=== PATIENT | male | born 1995 | race Caucasian/White ===

== ENCOUNTER 2023-10-15 13:34 | Emergency (ER) | payer OTHER, SELFPAY ==
--- NOTE | 2023-10-15 13:52 | ED.UPPEXIN ---
HPI - Extremity Injury (Upper) General Chief Complaint: Upper Respiratory Symptoms Stated Complaint: wrist pain , swollen hand Time Seen by Provider: 10/15/23 15:27 Source: patient Mode of arrival: ambulatory Limitations: no limitations History of Present Illness HPI narrative: Patient is a 28-year-old male who presents emergency department for evaluation of left wrist pain predominantly to the volar aspect of sudden onset yesterday upon awakening without any known precipitating injury. 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 He does have intermittent tingling sensation particularly to the fingertips. He denies any fevers, chills, redness, rash or lesions, history of arthritis/gout. Related Data Previous Rx's Medication Instructions Recorded methocarbamol 750 mg tablet 750 mg PO TID PRN pain #14 tabs 10/15/23 Allergies Allergy/AdvReac Type Severity Reaction Status Date / Time amoxicillin [From AUGMENTIN] Allergy Unknown UNKNOWN Verified 10/15/23 13:53 clavulanic acid Allergy Unknown UNKNOWN Verified 10/15/23 13:53 [From AUGMENTIN] sulfisoxazole Allergy Unknown UNKNOWN Verified 10/15/23 13:53 [From GANTRISIN] Gantrisin Pediatric Allergy Unknown RASH Uncoded 09/18/19 00:00 Review of Systems Review of Systems: Yes all other systems are reviewed and are negative PMFSH Past Medical History Attestation statement: The following information was validated with the patient. Source: old records reviewed Onset Date is defined in the Problem List Problems that require an onset date and time if occurred within 24 hrs of arrival to the ED Aortic Dissection and Rupture; Neurologic impairment; Cardiopulmonary Arrest; Endotracheal Intubation; Insertion or Replacement of Mechanical Circulatory Assist Device Social History Social History Advance Directives: No Advance Directives Information Provided: No Physical Exam Vital Signs: Vital Signs: Last Vital Signs Temp 98.8 F 10/15/23 15:31 Pulse 75 10/15/23 15:31 Resp 14 10/15/23 15:31 BP 122/77 10/15/23 15:31 Pulse Ox 98 10/15/23 15:31 O2 Del Method Room Air 10/15/23 15:31 BMI result Body Mass Index 42.6 Appearance: Alert.?Oriented to person, place and time. No acute distress.?Normal affect.?? Neck: Normal inspection.? Neck supple.?? CVS: Heart sounds normal. Normal heart rate and rhythm.? Pulses normal.?? Respiratory: No respiratory distress.? Lung sounds clear to auscultation bilaterally?? Skin: Skin warm and dry.? Normal skin color.? Extremities: No extremity edema.? Tenderness upon palpation of the left volar wrist without erythema warmth rashes or lesions. Positive Tinel and Phalen sign. Neuro: Moves all extremities spontaneously. Sensation intact bilaterally. Ambulates with normal steady gait. Course Course Course Narrative: RME: 28 yo M w/ no sig PMHx presenting to the ED c/o L wrist pain and swelling since waking yesterday morning. denies known injury/fall. 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 +tingling. denies fever, gout Took [place] [employer]BURSE[employer] around 11AM L wrist & hand w/mild swelling & diffuse ttp > palmar aspect. NV intact. no erythema XRs ordered Full HPI, ROS and PE to be performed by primary ED provider. Medical Decision Making Medical Decision Making MDM Narrative: Patient is a 28-year-old male who presents emergency department for evaluation of left wrist pain predominantly to the volar aspect of sudden onset yesterday upon awakening without any known precipitating injury. No erythema warmth, rashes or lesions. Not consistent with septic arthritis or gouty arthritis. XR imaging obtained prior to my assumption of care reveals no evidence of acute osseous abnormality. Positive Tinel and Phalen sign most consistent with carpal tunnel syndrome. Reviewed the signs patient. Discussed conservative treatment in addition to volar wrist splint, NSAID, and appropriate outpatient follow-up. Discussed worrisome signs and symptoms that would warrant re-evaluation in the emergency department. All questions answered. Stable for discharge. Differential Diagnosis Differential Diagnoses: The differential diagnosis associated with the presentation includes (See narrative above) Independent Interpretation I performed an independent interpretation of an: Plain X-Ray (By personally interpreted XR imaging and agree with radiologist impression.) Radiology Impression Discussion of test interpretation with radiology: I have reviewed the radiologist's reading. Radiologist Impression: XR/XR hand wrist LT IMPRESSION: Normal left hand and wrist. Independent Historian Clinical information obtained from an independent historian. History obtained from or confirmed by: Parent ( Present who confirms history) Prescription Management I considered prescription management with: Pain Medication (Acetaminophen/ibuprofen) Discharge Plan Discharge Clinical Impression: Left wrist pain Patient Disposition: Home, Self-Care Instructions: R.I.C.E. Treatment (ED) Additional Instructions: based on your history and physical examination today the bleeding that you were experiencing appears most consistent with carpal tunnel syndrome. As discussed, please be sure to rest, apply ice to the area for 10-15 minutes 3-4 times daily. Use the wrist splint as provided, please wear this throughout the night, you may wear it also during the day if the wrist is particularly painful. You can take ibuprofen 200 mg, 3 tablets (600mg) every 6-8 hours as needed for pain, in addition to Tylenol 500 mg, 2 tablets (1,000mg) every 4-6 hours as needed for pain, but not to exceed 3 doses daily (3,000mg).? Contact your primary care provider to arrange for a follow-up visit, you may also consider following up with a hand specialist. Prescriptions: New methocarbamol 750 mg tablet 750 mg PO TID PRN (Reason: pain) Qty: 14 0RF Referrals: Felicitas Angel PA-C [Physician Habitat Conservation Planner] - Physician,Unknown J [Primary Care Provider] - Stand Alone Forms: Work/School Release
[2023-10-15 13:53] VITALS: BP 112/76; PULSE 86; RESP 18; TEMP 36.5; O2SAT 98; BMI 42.6
[2023-10-15 15:31] VITALS: BP 122/77; PULSE 75; RESP 14; TEMP 37.1; O2SAT 98
== END 2023-10-15 18:04 | disposition home or self-care (01) ==
PROVIDERS: Emergency Provider Student in an Organized Health Care Education/Training Program
DX: M25.532 Pain in left wrist (principal)
CPT/HCPCS: 73110; 73130; 99283

== ENCOUNTER 2023-10-21 14:24 | Outpatient (AMB) | payer OTHER, SELFPAY ==
[2023-10-21 14:41] VITALS: BMI 38.0
--- NOTE | 2023-10-21 14:41 | A.OFFVIS_ITS ---
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 He reports that overall his wrist feels much better as he feels his range of motion has improved. He is concerned that his wrist feels stiff with thpw-ms-weac motions and struggles picking up heavy objects. 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 The patient presented to the ED on 10/15/2023 status post left wrist pain predominantly to the volar aspect of sudden onset yesterday upon awakening without any known precipitating injury. He reported intermittent tingling sensation in his fingertips. He states overall his wrist is feeling much better and he feels his ROM has improved. He does express concerns that his wrist feels stiff with ?side to side? motions. He also reports struggling to belt picker heavy objects. 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 Review of Systems Const All systems reviewed & are unremarkable except as noted in HPI and below Physical Exam Vital Signs: BMI result Body Mass Index 38.0 Const General: cooperative, healthy appearing and no acute distress Resp Effort & Inspection: normal respiratory effort and able to speak in complete s entences Cardio Rate: regular rate Peripheral pulses: Peripheral pulses 2+ throughout GI Palpation (GI): Soft to palpation Skin Lesions: no lesions Rashes: no rashes Extrem Other: Left hand/wrist: Normal to inspection. No ecchymosis, erythema, or edema. Able to perform full finger flexion, extension, abduction, adduction, finger cross, okay sign, and thumbs up without deficit. Able to make a closed fist. Sensation intact. Capillary refill is brisk. Radial pulse intact. Assessment & Plan Assessment & Plan (1) Left wrist tendonitis: Code(s): M77.8 - Other enthesopathies, not elsewhere classified Plan Mr. Leong is a 28-year-old male who presents in the office today, as a new patient, for an evaluation of left wrist pain. The patient presented to the ED on 10/15/2023 status post left wrist pain predominantly to the volar aspect of sudden onset yesterday upon awakening without any known precipitating injury. He reported intermittent tingling sensation in his fingertips. He states overall h is wrist is feeling much better and he feels his ROM has improved. He does express concerns that his wrist feels stiff with ?side to side? motions. He also reports struggling to belt picker heavy objects. 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 The patient is requesting MRI imaging of the left wrist due to the severity in nature of the pain and ROM restrictions. I will place an order for the MRI of the left wrist to further evaluate the integrity of the wrist and surrounding structures. I have also placed a referral for the patient to attend occupational therapy to work on ROM. 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 Follow up will be after the MRI is obtained, or sooner if needed. X-rays of the left hand, obtained on 10/15/2023, revealed no acute fracture or dislocation. Orders: Orders MR yarbrough LT wo con Today M77.8 - Other enthesopathies, not elsewhere classified Patient Instructions: Scribed for Felicitas Angel PA-C by Sharda Brown resident medical officer, on 10/15/2023 at 2:30 pm, EST. Coding Level of Care Code New Pt Level 4 (63551) Diagnoses Left wrist tendonitis M77.8
== END 2023-10-21 15:06 | disposition home or self-care (01) ==
PROVIDERS: Visit Provider Physician Assistant
DX: M25.532 Pain in left wrist (principal); M77.8 Other enthesopathies, not elsewhere classified
CPT/HCPCS: 99203

== ENCOUNTER → 2023-10-21 14:24 | Outpatient (BNVA) | payer OTHER, SELFPAY | PROVIDERS: Visit Provider Physician Assistant | DX: M77.8 Other enthesopathies, not elsewhere classified (principal) | CPT/HCPCS: 99202 ==

== ENCOUNTER 2023-11-09 18:36 | Outpatient (REF) | payer OTHER, SELFPAY ==
--- NOTE | ~2023-11-09 | MR_ITS ---
EXAMINATION: MRI WRIST WITHOUT CONTRAST, LEFT CLINICAL INFORMATION: Left wrist pain, tendinitis. COMPARISON: Radiographs 10/15/2023. TECHNIQUE: MRI without contrast is performed on the left wrist. Image quality is degraded by patient motion artifact. FINDINGS: Mild edema/synovitis at the peripheral attachment of the triangular fibrocartilage complex to the fovea of the distal ulna with a small underlying reactive cyst. The TFCC appears intact. Bone marrow signal is otherwise normal. No joint effusions. The scapholunate and lunotriquetral ligaments appear intact. The carpal tunnel, flexor and extensor tendons are unremarkable. MR/MR wrist LT wo con IMPRESSION: Mild edema/synovitis at the peripheral attachment of the triangular fibrocartilage complex to the fovea of the distal ulna with a small underlying reactive cyst. The TFCC appears intact. Otherwise unremarkable.
== END 2023-11-09 18:37 | disposition home or self-care (01) ==
LOC: HO.MRI 18:36
PROVIDERS: Visit Provider Physician Assistant
DX: M77.8 Other enthesopathies, not elsewhere classified (principal)
CPT/HCPCS: 73221

== ENCOUNTER 2023-11-12 09:04 | Outpatient (AMB) | payer OTHER, SELFPAY ==
--- NOTE | 2023-11-12 09:06 | A.OFFVIS_ITS ---
Intake Vital Signs 11/12/23 09:08 Height 5 ft 8 in Weight 250 lb BMI 38.0 Intake Visit Reasons: OV-Wrist LT MRI review Intake Note: Sánchez is a 28 year old left hand dominant male who presents today for a MRI review of his left elbow. MRI was done on 11/09/23. Patient reports he is doing a bit better, however still having some mild pain. Allergies amoxicillin [From AUGMENTIN] Allergy (Unknown, Verified 11/12/23 09:07) UNKNOWN clavulanic acid [From AUGMENTIN] Allergy (Unknown, Verified 11/12/23 09:07) UNKNOWN sulfisoxazole [From GANTRISIN] Allergy (Unknown, Verified 11/12/23 09:07) UNKNOWN Gantrisin Pediatric Allergy (Unknown, Uncoded 10/21/23 14:42) RASH HPI OV-Wrist LT MRI review HPI Details 28-year-old left hand dominant male who presents in the office today for a follow up of left wrist pain and review of his MRI. I last saw the patient in the office on 10/21/2023 when he was referred for an MRI and occupational therapy. 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 While in the office today the patient reports he is doing a bit better, however, is still having some mild pain. Review of Systems Const All systems reviewed & are unremarkable except as noted in HPI and below Physical Exam Vital Signs: BMI result Body Mass Index 38.0 Const General: cooperative, healthy appearing and no acute distress Resp Effort & Inspection: normal respiratory effort and able to speak in complete sentences Cardio Rate: regular rate Peripheral pulses: Peripheral pulses 2+ throughout GI Palpation (GI): Soft to palpation Skin Lesions: no lesions Rashes: no rashes Extrem Other: Left wrist: Normal to inspection. No ecchymosis, erythema, or edema. Pain with ulnar deviation along the radial aspect of the wrist. Slight tenderness to palpation over the TFC. Negative Jorgito. Able to perform full finger flexion, extension, abduction, adduction, finger cross, okay sign, and thumbs up without deficit. Able to make a closed fist. Sensation intact. Capillary refill is brisk. Radial pulse intact. Assessment & Plan Assessment & Plan (1) Left wrist tendonitis: Code(s): M77.8 - Other enthesopathies, not elsewhere classified Plan Mr. Leong is a 28-year-old left hand dominant male who presents in the office today for a follow up of left wrist pain and review of his MRI. I last saw the patient in the office on 10/21/2023 when he was referred for an MRI and occupational therapy. 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 While in the office today the patient reports he is doing a bit better, however, is still having some mild pain. The patient will be referred to occupational therapy to work on ROM modalities and strengthening. 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 He was instructed to discontinue the use of the brace at this time. Follow up will be in 6 weeks, or sooner if needed. MRI of the left wrist, obtained on 11/09/2023, revealed: Mild edema/synovitis at the peripheral attachment of the triangular fibrocartilage complex to the fovea of the distal ulna with a small underlying reactive cyst. The TFCC appears intact. Otherwise unremarkable. Patient Instructions: Scribed for Felicitas Angel PA-C by Sharda Brown medical office technician, on 11/12/2023 at 9:13 am, EST. Coding Level of Care Code Est Pt Level 3 (11891) Diagnoses Left wrist tendonitis M77.8
[2023-11-12 09:08] VITALS: BMI 38.0
== END 2023-11-12 09:28 | disposition home or self-care (01) ==
PROVIDERS: Visit Provider Physician Assistant
DX: M77.8 Other enthesopathies, not elsewhere classified (principal)
CPT/HCPCS: 99213

== ENCOUNTER → 2023-11-12 09:04 | Outpatient (BNVA) | payer OTHER, SELFPAY | PROVIDERS: Visit Provider Physician Assistant | DX: M77.8 Other enthesopathies, not elsewhere classified (principal) | CPT/HCPCS: 99212 ==

== ENCOUNTER 2023-12-17 08:30 | Outpatient (RCR) | payer OTHER, SELFPAY ==
--- NOTE | 2023-12-17 08:55 | MHC.OT.DC ---
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 Tolerated simulated work task without difficulty. I anticipate pt to return to work without difficulty. Goals met Electronically Signed By: Marlene Cm OT CHT CLT Reviewed/agree with student documentation: Therapist: Please Sign and return to therapist, thank you for your referral.
== END 2023-12-17 08:56 | disposition home or self-care (01) ==
LOC: HO.OT 08:30
PROVIDERS: Visit Provider Physician Assistant
DX: M77.8 Other enthesopathies, not elsewhere classified (principal)
CPT/HCPCS: 97035; 97110; 97166; 97530

== ENCOUNTER 2023-12-17 09:14 | Outpatient (AMB) | payer OTHER, SELFPAY ==
--- NOTE | 2023-12-17 09:23 | MHC.OFFVIS ---
Intake Vital Signs 12/17/23 09:24 Height 5 ft 8 in Weight 220 lb BMI 33.4 Intake Visit Reasons: OV - Left wrist tendonitis Intake Note: Sánchez is a 28 year old left hand dominant male who presents today for a follow up for a Left wrist tendonitis. Patient reports that he is doing well, he has no concerns at this time. Allergies amoxicillin [From AUGMENTIN] Allergy (Unknown, Verified 11/12/23 09:07) UNKNOWN clavulanic acid [From AUGMENTIN] Allergy (Unknown, Verified 11/12/23 09:07) UNKNOWN sulfisoxazole [From GANTRISIN] Allergy (Unknown, Verified 11/12/23 09:07) UNKNOWN Gantrisin Pediatric Allergy (Unknown, Uncoded 10/21/23 14:42) RASH HPI OV - Left wrist tendonitis HPI Details 28-year-old left hand dominant male who presents in the office today for a follow up of left wrist tendonitis. I last saw the patient in the office on 11/12/2023 at which time he was referred to occupational therapy to work on ROM modalities and strengthening. He was instructed to discontinue the use of the brace. 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 While in the office today the patient reports he is doing well and has no concerns at this time. Review of Systems Const All systems reviewed & are unremarkable except as noted in HPI and below Physical Exam Vital Signs: BMI result Body Mass Index 33.4 Const General: cooperative, healthy appearing and no acute distress Resp Effort & Inspection: normal respiratory effort and able to speak in complete sentences Cardio Rate: regular rate Peripheral pulses: Peripheral pulses 2+ throughout GI Palpation (GI): Soft to palpation Skin Lesions: no lesions Rashes: no rashes Extrem Other: Left wrist: Normal to inspection. No ecchymosis, erythema, or edema. Able to perform full finger flexion, extension, abduction, adduction, finger cross, okay sign, and thumbs up without deficit. Able to make a closed fist. Sensation intact. Capillary refill is brisk. Radial pulse intact. Assessment & Plan Assessment & Plan (1) Left wrist tendonitis: Code(s): M77.8 - Other enthesopathies, not elsewhere classified Plan Mr. Leong is a 28-year-old left hand dominant male who presents in the office today for a follow up of left wrist tendonitis. I last saw the patient in the office on 11/12/2023 at which time he was referred to occupational therapy to work on ROM modalities and strengthening. He was instructed to discontinue the use of the brace. 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 While in the office today the patient reports he is doing well and has no concerns at this time. Patient has completed all sessions of occupational therapy and has been discharged. He has returned back to his baseline of ROM and is pain free. 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 He has no concerns at this time. Follow up will be PRN, or sooner if needed. Patient Instructions: Scribed by Sharda Brown medical claims processor, for Felicitas Angel PA-C on 12/17/2023 at 9:16 am, EST. Coding Level of Care Code Est Pt Level 3 (16247) Diagnoses Left wrist tendonitis M77.8
[2023-12-17 09:24] VITALS: BMI 33.4
== END 2023-12-17 09:29 | disposition home or self-care (01) ==
PROVIDERS: Visit Provider Physician Assistant
DX: M77.8 Other enthesopathies, not elsewhere classified (principal)
CPT/HCPCS: 99212

== ENCOUNTER → 2023-12-17 09:14 | Outpatient (BNVA) | payer OTHER, SELFPAY | PROVIDERS: Visit Provider Physician Assistant | DX: M77.8 Other enthesopathies, not elsewhere classified (principal) | CPT/HCPCS: 99212 ==

== ENCOUNTER 2024-04-17 03:33 | Emergency (ER) | payer OTHER, SELFPAY ==
--- NOTE | ~2024-04-17 | CT_ITS ---
EXAMINATION: CT ABDOMEN AND PELVIS WITHOUT CONTRAST CLINICAL INFORMATION: Left flank pain. Hematuria. COMPARISON: CT abdomen pelvis 10/30/2018. TECHNIQUE: Multidetector volumetric imaging was performed from the superior aspect of the liver through the pubic symphysis. Sagittal and coronal reformatted images were obtained on the technologist's workstation. This CT examination was performed using dose optimization techniques as appropriate, variously including the following: *Automated exposure control *Adjustment of mA and/or kV according to patient size (this includes techniques or standardized protocols for targeted exams where dose is matched to indication/reason for exam; i.e. extremities or head) *Use of iterative reconstruction technique DLP: 804 mGy-cm FINDINGS: LUNG BASES: The visualized lung bases are unremarkable. LIVER, GALLBLADDER, AND BILIARY TREE: The liver is normal in size, shape, and attenuation. No focal hepatic lesion or biliary ductal dilatation is present. The gallbladder is unremarkable with no evidence of radiopaque gallstones, gallbladder wall thickening, or obvious pericholecystic inflammatory changes. PANCREAS: Unremarkable. SPLEEN: Unremarkable. ADRENAL GLANDS: Unremarkable. KIDNEYS AND URETERS: *Left kidney: 2 mm interpolar calculus. 3 closely approximated calculi within the inferior renal pelvis, the largest measuring 2 mm. Right kidney: 1 mm calculus interpolar region. 1 mm calculus superior right renal pelvis. Mild left perinephric inflammatory changes. Mild left hydronephrosis. Mild left ureterectasis. Single 1.5 mm calculus at the left ureterovesicular junction. BLADDER: Decompressed GASTROINTESTINAL TRACT: Normal appendix. No intestinal dilatation or mural thickening. No free intraperitoneal fluid or gas collections. Normal stomach. ABDOMINAL WALL: No significant hernia is appreciated. LYMPH NODES: Normal. VASCULAR: Unremarkable. PELVIC VISCERA: Unremarkable. OSSEOUS STRUCTURES: Unremarkable. CT/CT abdomen pelvis wo IV con IMPRESSION: 1. Single 1.5 mm obstructing calculus at the left ureterovesicular junction associated with mild left hydronephrosis and ureterectasis. Left perinephric inflammatory changes are present. No left perinephric fluid collections. 2. Bilateral punctate (2 mm less) nonobstructing renal calculi.
[2024-04-17 03:53] VITALS: BP 132/91; PULSE 71; RESP 20; TEMP 36.6; O2SAT 99; BMI 38.0
[2024-04-17 04:23] LABS: MANUAL DIFF FLAG NO
--- NOTE | 2024-04-17 04:29 | ED_ITS ---
HPI - Male Genitourinary General Chief complaint: Urogenital-Male Stated complaint: back pain- vomiting Time Seen by Provider: 04/17/24 04:29 History of Present Illness ED Provider: Dionna GARZON Narrative: The patient is a 28-year-old male who says that he developed severe left-sided pain earlier this evening at around 10 or 11 PM. He had been feeling fine earlier in the day yesterday. No fever, sweats, chills. No dysuria. He says that he has a history of kidney stones but never experienced pain like he has on this occasion. Related Data Previous Rx's ?Medication ?Instructions ?Recorded methocarbamol 750 mg tablet 750 mg PO TID PRN pain #14 tabs 10/15/23 ibuprofen 600 mg tablet 600 mg PO Q6H PRN pain #14 tabs 04/17/24 ondansetron 4 mg disintegrating 4 mg PO Q6H PRN nausea and 04/17/24 tablet vomiting #7 tabs oxycodone 5 mg tablet 5 mg PO Q6H PRN pain #10 tabs 04/17/24 Allergies Allergy/AdvReac Type Severity Reaction Status Date / Time amoxicillin [From AUGMENTIN] Allergy Unknown UNKNOWN Verified 04/17/24 03:58 clavulanic acid Allergy Unknown UNKNOWN Verified 04/17/24 03:58 [From AUGMENTIN] sulfisoxazole Allergy Unknown UNKNOWN Verified 04/17/24 03:58 [From GANTRISIN] Gantrisin Pediatric Allergy Unknown RASH Uncoded 10/21/23 14:42 Review of Systems 2 Review of Systems: Yes all other systems are reviewed and are negative PMFSH Social History Social History Smoked in Last 30 Days: No Use of substances other than those prescribed or required for medical reasons: No Advance Directives: No Advance Directives Information Provided: No Physical Exam 2 Vital Signs: Vital Signs: Last Vital Signs Temp 98.4 F 04/17/24 06:21 Pulse 64 04/17/24 06:21 Resp 14 04/17/24 06:21 BP 125/79 04/17/24 06:21 Pulse Ox 96 04/17/24 06:21 O2 Del Method Room Air 04/17/24 06:21 BMI result Body Mass Index 38.0 Const: Other: The patient was awake and alert. He looked pale and uncomfortable. HEENT: Other: Face is symmetrical. Mucous membranes moist. Eyes: Other: Pupils are round equal, conjunctivae clear Neck: Other: Neck is supple Resp: Effort & Inspection: normal respiratory effort Auscultation: clear to auscultation bilaterally Cardio: Rate: regular rate Rhythm: regular rhythm Heart sounds: S1 normal heart sound present and S2 normal heart sound present GI: Other: Abdomen is soft and nontender Back/Spine/Pelvis: Other: There is left-sided CVA percussion tenderness. Skin: Other: Skin was pale and pasty looking Neuro: Other: The patient was awake and alert. He seemed distracted by discomfort. Otherwise he was neurologically intact. Extrem: Other: No peripheral edema Medications Administered Discontinued Medications Generic Name Dose Route Start Last Admin Trade Name Freq PRN Reason Stop Dose Admin Droperidol 1.25 mg 04/17/24 04:33 04/17/24 04:39 Droperidol 5 Mg/2 Ml Vial IM 04/17/24 04:34 1.25 mg ONCE ONE Administration Ketorolac Tromethamine 30 mg 04/17/24 04:33 04/17/24 04:39 Ketorolac Tromethamine 30 Mg/Ml Vial IM 04/17/24 04:34 30 mg ONCE ONE Administration Oxycodone HCl 5 mg 04/17/24 06:47 04/17/24 07:16 Oxycodone Hcl Immed Release 5 Mg Tablet PO 04/17/24 06:48 5 mg ONCE ONE Administration Medical Decision Making Medical Decision Making [facility] Narrative: The patient presents with left flank pain suggestive of left ureteral colic. Physical exam revealed left CVA percussion tenderness. Urinalysis showed microscopic hematuria. A noncontrast CT of the abdomen and pelvis showed a 1.5 mm left distal ureteral stone associated with hydroureter. The patient did not wish to have an IV started. He accepted an IM injection of ketorolac and droperidol. He felt much better. I reviewed the CT scan findings of the 1.5 mm distal ureteral stone. He will be discharged with pain medications to manage his symptoms at home with the expectation that he should pass this stone fairly soon. He is referred to Urology. Lab Data 04/17/24 04:47 04/17/24 04:47 Labs: Lab Results 04/17/24 04/17/24 Range/Units 04:47 04:50 WBC 13.6 H (4.8-10.8) X10*3/uL RBC 5.34 (4.60-5.80) X10*6/uL Hgb 15.3 (14.0-18.0) g/dl Hct 43.6 (42.0-52.0) % MCV 81.6 (80.0-98.0) fL MCH 28.7 (27.0-33.0) pg MCHC 35.1 (31.0-36.0) g/dl RDW 13.7 (11.0-16.0) % Plt Count 410 H (160-400) X10*3/uL MPV 9.2 L (9.4-12.4) fL Immature Gran % (Auto) 0.4 (0.0-0.4) % Neut % (Auto) 76.6 H (45-73) % Lymph % (Auto) 14.8 L (20-40) % Rains % (Auto) 6.6 (2-11) % Eos % (Auto) 0.7 (0-4) % Baso % (Auto) 0.9 (0-2) % Lymph # (Auto) 2.0 (1.2-4.9) X10*3/uL Rains # (Auto) 0.9 (0.1-1.2) X10*3/uL Eos # (Auto) 0.1 (0.0-0.4) X10*3/uL Baso # (Auto) 0.1 (0.0-0.2) X10*3/uL Abs Immat Gran (auto) 0.05 H (0.00-0.03) X10*3/uL Absolute Neuts (auto) 10.4 H (2.0-8.3) x10*3/uL Absolute Nucleated RBC 0.000 (0.0-0.012) X10*3/uL Nucleated RBC % (auto) 0.0 (0.0-0.2) /100WBC Sodium 140 (135-145) mmol/L Potassium 3.5 (3.3-5.1) mmol/L Chloride 106 (96-108) mmol/L Carbon Dioxide 22 (22-29) mmol/L Anion Gap 16 (12-20) BUN 17 H (9-16) mg/dL Creatinine 1.25 (0.5-1.4) mg/dL Estim Creat Clear Calc 108.4 Estimated GFR > 60 Random Glucose 150 H (60-115) mg/dL Calcium 9.9 (8.4-10.2) mg/dL Total Bilirubin 0.6 (0.0-1.0) mg/dL AST 24 (5-37) U/L ALT 27 (0-40) U/L Alkaline Phosphatase 95 (39-117) U/L C-Reactive Protein 0.51 H (< or = 0.50) mg/dL Total Protein 7.8 (6.5-8.0) g/dL Albumin 4.6 (3.5-5.0) g/dL Lipase 15 (8-78) U/L Urine Color Dark Yellow Urine Appearance Cloudy Urine pH 6.5 (5.0-9.0) Ur Specific [place] >= 1.030 H (1.005-1.025) Urine Protein 100 (2+) H (Neg-Trace) mg/dL Urine Glucose (UA) Negative (Negative) mg/dL Urine Ketones 15 (Negative) mg/dL Urine Blood Large (3+) H (Negative) Urine Nitrite Negative (Negative) Ur Leukocyte Esterase Trace H (Negative) Urine RBC >20 H (0-2) /HPF Urine WBC 0-5 (0-5) /HPF Ur Squamous Epith Cells 3-5 (0-2) /HPF Urine Bacteria None Seen (None Seen) Hyaline Casts 3-5 (0-2) /LPF Discharge Plan Discharge Clinical Impression: Calculus of distal right ureter, Ureteral colic Patient Disposition: Home, Self-Care Instructions: Renal Colic (ED) Additional Instructions: You have a small kidney stone at the end of your right ureter just where the ureter meets the bladder. The stone is 1.5 mm in size. Stones of this size usually pass on their own. You may take 2 extra-strength acetaminophen (Tylenol) as needed for pain up to 3 times a day. You may take ibuprofen every 6 hours as needed for pain. I have also sent a prescription for oxycodone that you may use every 4-6 hours as needed for pain. There is a prescription for ondansetron that you may use as needed for nausea, 1 tablet every 6 hours. Drink lot of fluids. I have given you the name and number of Dr. Elías Silverman, the urologist. Please call to set up a follow up appointment. Return to the emergency room if significantly worse. Prescriptions: New ibuprofen 600 mg tablet 600 mg PO Q6H PRN (Reason: pain) Qty: 14 0RF oxycodone 5 mg tablet 5 mg PO Q6H PRN (Reason: pain) Qty: 10 0RF Rx Instructions: Partial Fill upon patient request. ondansetron 4 mg tablet,disintegrating 4 mg PO Q6H PRN (Reason: nausea and vomiting) Qty: 7 0RF No Action methocarbamol 750 mg tablet 750 mg PO TID PRN (Reason: pain) Qty: 14 0RF Referrals: Elías Silverman MD [Physician] - (ureteral stone) Print Language: Chinese
[2024-04-17] MEDS: Ketorolac Tromethamine 30 MG/ML VIAL IM (04:39)
[2024-04-17] MEDS: droPERidol 5 MG/2 ML VIAL 1.25 MG IM (04:39)
[2024-04-17 04:55] LABS: Basophils Absolute Auto 0.1 X10*3/uL (0.0-0.2); Basophils Percent Auto 0.9 % (0-2); Eosinophils Absolute Auto 0.1 X10*3/uL (0.0-0.4); Eosinophils Percent Auto 0.7 % (0-4); Hematocrit 43.6 % (42.0-52.0); Hemoglobin 15.3 g/dl (14.0-18.0); Imm Gran Abs Auto 0.05 X10*3/uL (0.00-0.03); Imm Gran Pct Auto 0.4 % (0.0-0.4); Lymphocytes Percent Auto 14.8 % (20-40); Mean Corpuscular HGB Conc 35.1 g/dl (31.0-36.0); Mean Corpuscular Hemoglobin 28.7 pg (27.0-33.0); Mean Corpuscular Volume 81.6 fL (80.0-98.0); Mean Platelet Volume 9.2 fL (9.4-12.4); Monocytes Absolute Auto 0.9 X10*3/uL (0.1-1.2); Monocytes Percent Auto 6.6 % (2-11); Neutrophils Absolute Auto 10.4 x10*3/uL (2.0-8.3); Neutrophils Percent Auto 76.6 % (45-73); Platelet Count 410 X10*3/uL (160-400); Red Blood Count 5.34 X10*6/uL (4.60-5.80); Red Cell Distribution Width 13.7 % (11.0-16.0); White Blood Count 13.6 X10*3/uL (4.8-10.8)
[2024-04-17 04:56] LABS: Appearance Urine Cloudy; Color Urine Dark Yellow; Glucose Urine UA Negative (Negative); Leukocyte Esterase Urine Trace (Negative); Nitrite Urine Negative (Negative); PH 6.5 (5.0-9.0); Specific Gravity - Urine >= 1.030 (1.005-1.025); UMIC TRIGGER UACC YES; Urine Blood Large (3+) (Negative); Urine Ketones 15 mg/dL (Negative); Urine Protein 100 (2+) mg/dL (Neg-Trace)
[2024-04-17 04:59] LABS: Bacteria Urine None Seen (None Seen); RBC Urine >20 /HPF (0-2); WBC Urine 0-5 /HPF (0-5)
[2024-04-17 05:10] LABS: Alanine Aminotransferase 27 U/L (0-40); Albumin Level 4.6 g/dL (3.5-5.0); Alkaline Phosphatase 95 U/L (39-117); Anion Gap 16 (12-20); Aspartate Amino Transferase 24 U/L (5-37); Bilirubin Total 0.6 mg/dL (0.0-1.0); Blood Urea Nitrogen 17 mg/dL (9-16); C Reactive Protein 0.51 mg/dL (< or = 0.50); Calcium 9.9 mg/dL (8.4-10.2); Carbon Dioxide 22 mmol/L (22-29); Chloride 106 mmol/L (96-108); Creatinine Clr Calc Pharmacy 108.4; Estimated Glomerular Filt Rate > 60; Glucose Random 150 mg/dL (60-115); Lipase 15 U/L (8-78); Potassium 3.5 mmol/L (3.3-5.1); Sodium 140 mmol/L (135-145); Total Protein 7.8 g/dL (6.5-8.0)
[2024-04-17 06:21] VITALS: BP 125/79; PULSE 64; RESP 14; TEMP 36.9; O2SAT 96
[2024-04-17] MEDS: oxyCODONE HCl Immed Release 5 MG TABLET PO (07:16)
[2024-04-17 07:18] VITALS: BP 125/79; PULSE 64; RESP 14; TEMP 36.9; O2SAT 96
== END 2024-04-17 07:19 | disposition home or self-care (01) ==
PROVIDERS: Emergency Provider Emergency Medicine; PCP Internal Medicine Geriatric Medicine
DX: N20.1 Calculus of ureter (principal); R10.2 Pelvic and perineal pain; M54.50 Low back pain, unspecified; Z79.899 Other long term (current) drug therapy
CPT/HCPCS: 36415; 74176; 80053; 81001; 83690; 85025; 86140; 96372; 99284; J1790; J1885

== ENCOUNTER 2024-07-06 10:28 | Outpatient (REF) | payer OTHER, SELFPAY ==
[2024-07-06 11:27] LABS: Alanine Aminotransferase 24 U/L (0-40); Albumin Level 4.2 g/dL (3.5-5.0); Alkaline Phosphatase 89 U/L (39-117); Anion Gap 13 (12-20); Aspartate Amino Transferase 22 U/L (5-37); Bilirubin Total 0.3 mg/dL (0.0-1.0); Blood Urea Nitrogen 15 mg/dL (9-16); Calcium 9.7 mg/dL (8.4-10.2); Carbon Dioxide 22 mmol/L (22-29); Chloride 109 mmol/L (96-108); Estimated Glomerular Filt Rate > 60; Glucose Random 98 mg/dL (60-115); Potassium 4.6 mmol/L (3.3-5.1); Sodium 139 mmol/L (135-145); Total Protein 7.4 g/dL (6.5-8.0)
[2024-07-06 11:52] LABS: TSH reflex Free T4 0.74 uIU/mL (0.32-4.0)
== END 2024-07-06 10:29 | disposition home or self-care (01) ==
LOC: HO.LAB 10:28
PROVIDERS: PCP Internal Medicine Geriatric Medicine; Visit Provider Internal Medicine Geriatric Medicine
DX: F41.9 Anxiety disorder, unspecified (principal); F32.A Depression, unspecified; E66.9 Obesity, unspecified
CPT/HCPCS: 36415; 80053; 84443